=== PATIENT | male | born 1990 | race Caucasian/White ===

== ENCOUNTER 2022-11-29 01:14 | Emergency (ER) | payer OTHER ==
[~2022-11-29] VITALS: Ht 167.6 cm; Wt 72.6 kg
[2022-11-29] MEDS ORDERED: NARCAN4 M1 (03:49)
[2022-11-29 04:00] VITALS: BP 124/71
== END 2022-11-29 04:15 | disposition home or self-care (01) ==
LOC: ER 01:14
DX: T40.411A Poisoning by fentanyl or fentanyl analogs, accidental (unintentional), initial encounter (principal); R40.4 Transient alteration of awareness; Z59.00 Homelessness unspecified
CPT/HCPCS: A9270